=== PATIENT | female | born 1995 | race Caucasian/White ===

== ENCOUNTER 2018-02-20 18:43 | Day surgery (SDC) | payer OTHER, SELFPAY ==
[2018-02-20] VITALS (11 sets, daily range): BP systolic 98–156; BP diastolic 63–100; PULSE 78–110; RESP 10–22; TEMP 36.8–37.2; O2SAT 92–100; BMI 28.3
--- NOTE | 2018-02-20 | PATH_ITS ---
[facility] Accession Number: [id number] . 01 Material submitted: . RIGHT FALLOPIAN TUBE . 02 Diagnosis: Resected Right Fallopian Tube: Marked vascular congestion with associated recent subepithelial hemorrhage. Negative for atypia (see microscopic description). Negative for evidence of ectopic . MRV/02/23/2018 . 02 Electronically signed: . Froylan Bagley MD, Pathologist NPI- [id number] . 01 Gross description: . Received in formalin, labeled right fallopian tube, is a fimbriated fallopian tube (length-4.7 cm, diameter-up to 0.8 cm) with dark maroon smooth and shiny serosa and a lua unremarkable lumen. No nodules, masses or lesions are identified. [employer] serial sections are submitted in cassette A1 and the fimbria is bivalved and entirely submitted in cassette A2. ([id number]) /[facility] . 02 Microscopic: . Sections are of fallopian tube. There is marked congestion of the vasculature surrounding the fallopian tube and there is also marked recent subepithelial hemorrhage within the tube. These changes are quite consistent with those due to a recent torsion. There is no evidence of ectopic . . 02 Pathologist provided ICD-10: N83.511 . 02 CPT . 275605 Performed at: 01 [facility] [address], [place], [place] [id number] MD Alexander Beckman MD Phone: [phone] Performed at: 02 [facility] [address] [place], [place] [id number] MD Torey Wilde MD Phone: [phone]
[2018-02-20] MEDS: ONDANSETRON 4 MG/2 ML INJ IV (19:26)
[2018-02-20 19:27] LABS: Add Manual Diff / Slide Review NO; Basophils Percent Auto 0.4 % (0-2); Eosinophils Percent Auto 0.3 % (2-4); Hematocrit 42.2 % (36-46); Hemoglobin 14.2 g/dL (12.0-16.0); Lymphocytes Percent Auto 11.1 % (25-40); Mean Corpuscular HGB Conc 33.6 % (30-36); Mean Corpuscular Hemoglobin 30.6 PG (26-34); Mean Corpuscular Volume 90.9 fL (80-100); Monocytes Percent Auto 4.9 % (3-14); Neutrophils Absolute Auto 11900 /uL (3000-5900); Neutrophils Percent Auto 83.3 % (50-75); Platelet Count 250 X10^3/uL (150-400); Red Blood Cell Count 4.65 X10^6/uL (4.0-5.2); Red Cell Distribution Width 13.9 % (11.6-14.8); White Blood Cell Count 14.3 X10^3/uL (4.5-11.0)
[2018-02-20] MEDS: SODIUM CHLORIDE 0.9% 1,000 ML 150 ML IV (19:30)
--- NOTE | 2018-02-20 19:31 | DI.US.S_ITS ---
PROCEDURE: US PELVIC COMPLETE INDICATIONS: SEVERE RIGHT PELVIC PAIN TECHNIQUE: Real-time scanning was performed of the pelvic organs, with image documentation. Additional endovaginal scanning was necessary due to incomplete visualization of the adnexal and endometrial structures by transabdominal scanning. COMPARISON: None. FINDINGS: Transabdominal scanning: Limited scanning through the kidneys shows no hydronephrosis. No pathologic free abdominal or pelvic fluid. Endovaginal scanning: Uterus: Uterus is normal in size at 8.0 x 2.7 x 3.9 cm. The endometrium measures 7 mm in combined thickness. Ovaries: The right ovary is enlarged and heterogeneous in appearance measuring approximate 5.8 x 3.8 x 4.5 cm. There is overall minimal internal vascularity on color Doppler interrogation. A few scattered peripheral post Doppler waveforms suggests minimal arterial flow peripherally. There are a few scattered ovarian follicles. The left ovary measures approximately 3.2 x 2.2 x 3.2 cm. There is patent arterial flow demonstrated in the left ovary with a few scattered small follicles. IMPRESSION: 1. Enlarged heterogeneous right ovary with normal vascularity highly suspicious for ovarian torsion. Findings discussed with Dr. Messer on 02/20/18 at 8:30 PM. Dictated by: Alexander Montaño M.D. on 02/20/2018 at 20:27 Approved by: Alexander Montaño M.D. on 02/20/2018 at 20:32
--- NOTE | 2018-02-20 19:34 | ED.ABDPAIN ---
HPI - Abdominal Pain General Chief Complaint: Abdominal Pain Stated Complaint: ABD PAIN THROWING UP Time Seen by Provider: 02/20/18 19:31 Source: patient Mode of arrival: ambulatory Limitations: no limitations History of Present Illness HPI narrative: The patient is a 19-year-old female who presents with sudden onset right lower quadrant pain she has thrown up at least 3 times. It hurts whenever she moves. No history of ovarian cyst. She was at work earlier today and feeling well. No history of fever diarrhea. It is sharp stabbing nonradiating. No vaginal bleeding. complaint: abdominal pain Onset (ago): hour(s) Location: diffuse and RLQ Severity: severe Quality: stabbing and sharp Migration to: RLQ Related Data Home Medications Medication Instructions Recorded Confirmed No Known Home Medications 02/20/18 02/20/18 Allergies Allergy/AdvReac Type Severity Reaction Status Date / Time No Known Drug Allergies Allergy Verified 02/20/18 18:56 Review of Systems Review of Systems GENERAL: Denies chills, fatigue, malaise, fever, sweats, travel HEENT: Denies sinus pain, ear pain, sore throat, difficulty swallowing, neck pain RESPIRATORY: Denies dyspnea, cough, wheezing, hemoptysis, sputum. CARDIOVASCULAR: Denies chest pain, palpitations, orthopnea, edema GASTROINTESTINAL: see hPI : Denies dysuria, frequency, incontinence, hematuria, urinary retention, flank pain. MUSCULOSKELETAL: Denies weakness, joint pain, or bony pain SKIN: No rash, no erythema, no pruritus NEUROLOGIC: Denies weakness, dizziness, headache, numbness, change in speech, confusion PSYCHIATRIC: No concerning psychosocial issues. 12 point review of systems is negative except for those stated above and HPI [facility] Social History household members: other Smoking Status: Current every day smoker Exam Initial Vital Signs Initial Vital Signs: Vital Signs Temperature 98.2 F 02/20/18 18:52 Pulse Rate 82 02/20/18 18:52 Respiratory Rate 22 02/20/18 18:52 Blood Pressure 156/100 H 02/20/18 18:52 Pulse Oximetry 100 02/20/18 18:52 GENERAL: Crying young female crawled on left side appears in severe pain HEENT: Head atraumatic,EOMI, pupils reactive, face symmetric CARDIOVASCULAR: Regular rate and rhythm without murmurs, rubs or gallops. RESPIRATORY: Breath sounds equal bilaterally, no wheezes rales or rhonchi. ABDOMEN: Soft, significant localized tenderness in right lower quadrant with light touch with guarding. : No CVA tenderness EXTREMITIES: Normal range of motion, no clubbing or edema. Neurovascularly intact NEUROLOGICAL: Alert and oriented x4.Normal gait and speech. Cranial nerves II through XII grossly intact. SKIN: Warm, dry, no laceration, no petechiae, no rashes or lesions. Course Orders Ordered: ED Orders 02/20/18 19:17 Complete Blood Count AUTO DIFF Stat Comprehensive Metabolic Panel Stat Lipase Stat Test Serum,Qual Stat 02/20/18 19:31 US pelvic complete Stat 02/20/18 19:44 CT abdomen pelvis w con Stat Hydromorphone HCl (Dilaudid) 2 mg PO Q4HR PRN PRN Reason: Pain, Moderate (4-6) Last Admin: 02/21/18 00:25 Dose: 2 mg Sodium Chloride (Normal Saline 0.9%) 1,000 mls @ 100 mls/hr IV CONT VERONA Last Admin: 02/21/18 00:25 Dose: 100 mls/hr Ketorolac Tromethamine (Toradol) 30 mg IV Q6HR PRN PRN Reason: Pain, Moderate (4-6) Stop: 02/26/18 23:17 Ondansetron HCl (Zofran) 4 mg IV Q6HR PRN PRN Reason: Nausea And Vomiting Last Admin: 02/21/18 00:26 Dose: 4 mg Oxycodone/Acetaminophen (Percocet 5/325) 2 tab PO Q4HR PRN PRN Reason: Pain, Severe (7-10) Discontinued Medications Bupivacaine HCl/Epinephrine Bitart (Sensorcaine 0.5% W/ Epi (Pf)) 30 ml INJ NOW ONE Stop: 02/20/18 23:00 Last Admin: 02/20/18 23:01 Dose: 15 ml Fentanyl (Sublimaze) 25 mcg IV Q5MIN PRN PRN Reason: Pain, Mild (1-3) Hydromorphone HCl (Dilaudid) 0.5 mg IV Q5MIN PRN PRN Reason: Pain, Moderate (4-6) Sodium Chloride (Normal Saline 0.9%) 1,000 mls @ 150 mls/hr IV CONT VERONA Last Infusion: 02/21/18 00:00 Dose: 150 mls/hr Infusion: 02/21/18 00:00 Dose: 150 mls/hr Admin: 02/20/18 19:30 Dose: 150 mls/hr Lactated Ringer's (Lactated Ringers) 1,000 mls @ 42 mls/hr IV CONT VERONA Last Admin: 02/20/18 22:58 Dose: 42 mls/hr Infusion: 02/20/18 22:58 Dose: 42 mls/hr Admin: 02/20/18 22:00 Dose: 42 mls/hr Cefotetan Disodium/Dextrose (Cefotan) 2 gm in 50 mls @ 100 mls/hr IV NOW ONE Stop: 02/20/18 22:42 Last Infusion: 02/20/18 22:30 Dose: 0 mls/hr Admin: 02/20/18 22:13 Dose: 100 mls/hr Cefotetan Disodium/Dextrose (Cefotan) 2 gm in 50 mls @ 0 mls/hr IV NOW ONE Stop: 02/21/18 00:15 Last Admin: 02/21/18 03:29 Dose: Not Given Sodium Chloride (Normal Saline 0.9%) 1,000 mls @ 100 mls/hr IV CONT VERONA Last Admin: 02/21/18 03:01 Dose: Not Given Cefotetan Disodium/Dextrose (Cefotan) 2 gm in 50 mls @ 100 mls/hr IV NOW ONE Stop: 02/21/18 00:43 Last Admin: 02/21/18 03:29 Dose: Not Given Ketorolac Tromethamine (Toradol) 30 mg IV NOW ONE Stop: 02/20/18 19:33 Last Admin: 02/20/18 19:37 Dose: 30 mg Lorazepam (Ativan) 0.25 mg IV NOW PRN PRN Reason: Anxiety Meperidine HCl (Demerol) 25 mg IV Q5MIN PRN PRN Reason: Pain or shivering Metoclopramide HCl (Reglan) 10 mg IV NOW PRN PRN Reason: Nausea And Vomiting Morphine Sulfate (Morphine) 2 mg IV NOW ONE Stop: 02/20/18 19:54 Last Admin: 02/20/18 19:56 Dose: 2 mg Morphine Sulfate (Morphine) 2 mg IV NOW ONE Stop: 02/20/18 21:00 Last Admin: 02/20/18 21:04 Dose: 2 mg Morphine Sulfate (Morphine) 2 mg IV NOW ONE Stop: 02/20/18 21:41 Last Admin: 02/20/18 21:45 Dose: 2 mg Morphine Sulfate (Morphine) 2 mg IV NOW ONE Stop: 02/21/18 00:15 Last Admin: 02/21/18 03:00 Dose: Not Given Morphine Sulfate (Morphine) 2 mg IV NOW ONE Stop: 02/21/18 00:15 Last Admin: 02/21/18 03:01 Dose: Not Given Ondansetron HCl (Zofran) 4 mg IV NOW ONE Stop: 02/20/18 19:23 Last Admin: 02/20/18 19:26 Dose: 4 mg Ondansetron HCl (Zofran) 4 mg IV NOW ONE Stop: 02/20/18 19:33 Last Admin: 02/20/18 21:38 Dose: Not Given Consultations Consultation #1: Dr. 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 Time: 20:30 Consultation #2: Dr. Duval updated on patient's symptoms test results concern for ovarian torsion. He will be into the ED to evaluate patient. Time: 21:00 Vital Signs - 8 hr 02/20/18 21:28 02/20/18 21:58 02/20/18 22:05 Temperature 99.0 F Pulse Rate 78 92 H 106 H Respiratory Rate 16 18 16 Blood Pressure 129/92 H 141/95 H Blood Pressure [Right Arm] 134/91 H Pulse Oximetry 100 96 97 02/20/18 23:10 02/20/18 23:15 02/20/18 23:20 Temperature 98.9 F Pulse Rate 101 H 94 H 101 H Respiratory Rate 18 14 10 L Blood Pressure 110/72 103/70 98/63 Blood Pressure [Right Arm] Pulse Oximetry 94 96 97 02/20/18 23:25 02/20/18 23:30 02/20/18 23:40 Temperature Pulse Rate 105 H 110 H 100 H Respiratory Rate 12 12 12 Blood Pressure 114/79 117/85 135/82 Blood Pressure [Right Arm] Pulse Oximetry 93 92 02/20/18 23:47 Temperature 98.3 F Pulse Rate 95 H Respiratory Rate 11 L Blood Pressure 129/78 Blood Pressure [Right Arm] Pulse Oximetry 93 MDM - Abdominal Pain Lab Data Attestation: I reviewed the patient's lab results. Result diagrams: 02/20/18 19:17 02/20/18 19:17 Lab Results 02/20/18 02/20/18 02/20/18 Range/Units 19:17 19:17 19:17 WBC 14.3 H (4.5-11.0) X10^3/uL RBC 4.65 (4.0-5.2) X10^6/uL Hgb 14.2 (12.0-16.0) g/dL Hct 42.2 (36-46) % MCV 90.9 (80-100) fL MCH 30.6 (26-34) PG MCHC 33.6 (30-36) % RDW 13.9 (11.6-14.8) % Plt Count 250 (150-400) X10^3/uL Neut % (Auto) 83.3 H (50-75) % Lymph % (Auto) 11.1 L (25-40) % [place] % (Auto) 4.9 (3-14) % Eos % (Auto) 0.3 L (2-4) % Baso % (Auto) 0.4 (0-2) % Neut # (Auto) 35013 H (4337-1559) /uL Sodium 145 (137-145) mmol/L Potassium 3.9 (3.4-5.1) mmol/L Chloride 105 (98-107) mmol/L Carbon Dioxide 26 (22-32) mmol/L BUN 15 (7-17) mg/dL Creatinine 0.70 (0.52-1.04) mg/dL Estimated GFR > 60.0 (>60) mL/min BUN/Creatinine Ratio 21.4 (6-22) Glucose 98 (70-100) mg/dL Calcium 9.7 (8.4-10.2) mg/dL Total Bilirubin 0.4 (0.2-1.3) mg/dL AST 24 (14-36) IU/L ALT 30 (9-52) IU/L Alkaline Phosphatase 59 (38-126) U/L Total Protein 7.5 (6.3-8.2) g/dL Albumin 5.1 H (3.5-5.0) g/dL Globulin 2.4 (1.7-4.1) g/dL Albumin/Globulin Ratio 2.1 (1.0-2.8) Lipase 33 (23-300) U/L Serum , Qual Negative (Negative) Imaging Data CT scan - abdomen: Radiologist's impression: PROCEDURE: CT ABDOMEN PELVIS W CON INDICATIONS: RLQ pain TECHNIQUE: After the administration of intravenous contrast, 5 mm thick sections acquired from the diaphragms to the symphysis. 5 mm thick coronal and sagittal reformats were performed. For radiation dose reduction, the following was used: automated exposure control, adjustment of mA and/or kV according to patient size. COMPARISON: [facility], , US PELVIC COMPLETE, 02/20/2018, 19:45. FINDINGS: Image quality: Excellent. ABDOMEN: Lung bases: Lung bases are clear. Heart size is normal. Solid organs: No focal hepatic lesions identified. Gallbladder appears within normal limits without calcified gallstones. Biliary system is non-dilated. Pancreas enhances normally. Spleen is normal in size and enhancement. No adrenal nodules. Kidneys demonstrate no hydronephrosis. There are small bilateral renal cysts. Peritoneum and bowel: Stomach, small bowel, and colon loops are normal in caliber and wall thickness. The appendix is normal in appearance. There is a small amount of free fluid in the pelvis. No free air. Nodes and vessels: No retroperitoneal or mesenteric adenopathy. Aorta and inferior vena cava are normal in caliber. Miscellaneous: No ventral hernias. PELVIS: Genitourinary: Bladder wall thickness is normal. The right ovary is markedly enlarged, measuring up to approximately 6.3 x 3.8 cm in transverse dimension. There are scattered peripherally enhancing ovarian follicles. Left ovary is normal in size. Miscellaneous: No inguinal hernias or adenopathy. Bones: No suspicious bony lesions. No vertebral body compression fractures. IMPRESSION: 1. Enlarged right ovary highly suspicious for ovarian torsion and consistent with concurrent pelvic ultrasound. Findings were discussed with Dr. Messer on 02/20/18 at 8:30 PM. 2. No evidence of appendicitis. Dictated by: Alexander Montaño M.D. on 02/20/2018 at 20:33 Pelvic ultrasound: Radiologist's impression: PROCEDURE: US PELVIC COMPLETE INDICATIONS: SEVERE RIGHT PELVIC PAIN TECHNIQUE: Real-time scanning was performed of the pelvic organs, with image documentation. Additional endovaginal scanning was necessary due to incomplete visualization of the adnexal and endometrial structures by transabdominal scanning. COMPARISON: None. FINDINGS: Transabdominal scanning: Limited scanning through the kidneys shows no hydronephrosis. No pathologic free abdominal or pelvic fluid. Endovaginal scanning: Uterus: Uterus is normal in size at 8.0 x 2.7 x 3.9 cm. The endometrium measures 7 mm in combined thickness. Ovaries: The right ovary is enlarged and heterogeneous in appearance measuring approximate 5.8 x 3.8 x 4.5 cm. There is overall minimal internal vascularity on color Doppler interrogation. A few scattered peripheral post Doppler waveforms suggests minimal arterial flow peripherally. There are a few scattered ovarian follicles. The left ovary measures approximately 3.2 x 2.2 x 3.2 cm. There is patent arterial flow demonstrated in the left ovary with a few scattered small follicles. IMPRESSION: 1. Enlarged heterogeneous right ovary with normal vascularity highly suspicious for ovarian torsion. Findings discussed with Dr. Messer on 02/20/18 at 8:30 PM. Dictated by: Alexander Montaño M.D. on 02/20/2018 at 20:27 MDM Narrative Medical decision making narrative: Dr. Stubbs in the ED to evaluate patient. Patient going to OR for suspicion of ovarian torsion. Discharge Plan Departure Patient Disposition: Admitted as Observation Clinical Impression: Ovary, torsion Discharge Date/Time: 02/20/18 22:09 Interventions: ED Discharge Assessment Last Done: 02/20/18 22:09 Admit Date/Time: 02/20/18 21:21 Admit Provider: Felipe Stubbs
[2018-02-20] MEDS: KETOROLAC 60 MG/2 ML VIAL 30 MG IV (19:37)
[2018-02-20 19:39] LABS: Alanine Aminotransferase 30 IU/L (9-52); Albumin 5.1 g/dL (3.5-5.0); Albumin Globulin Ratio 2.1 (1.0-2.8); Alkaline Phosphatase 59 U/L (38-126); Aspartate Aminotransferase 24 IU/L (14-36); BUN Creatinine Ratio 21.4 (6-22); Bilirubin Total 0.4 mg/dL (0.2-1.3); Blood Urea Nitrogen 15 mg/dL (7-17); Calcium 9.7 mg/dL (8.4-10.2); Carbon Dioxide 26 mmol/L (22-32); Chloride 105 mmol/L (98-107); Estimated Glomerular Filt Rate > 60.0 mL/min (>60); Globulin 2.4 g/dL (1.7-4.1); Glucose 98 mg/dL (70-100); HEMOLYSIS < 15 (0-50); Lipase 33 U/L (23-300); Potassium 3.9 mmol/L (3.4-5.1); Sodium 145 mmol/L (137-145); Total Protein 7.5 g/dL (6.3-8.2)
--- NOTE | 2018-02-20 19:44 | DI.CT.S_ITS ---
PROCEDURE: CT ABDOMEN PELVIS W CON INDICATIONS: RLQ pain TECHNIQUE: After the administration of intravenous contrast, 5 mm thick sections acquired from the diaphragms to the symphysis. 5 mm thick coronal and sagittal reformats were performed. For radiation dose reduction, the following was used: automated exposure control, adjustment of mA and/or kV according to patient size. COMPARISON: [facility], , US PELVIC COMPLETE, 02/20/2018, 19:45. FINDINGS: Image quality: Excellent. ABDOMEN: Lung bases: Lung bases are clear. Heart size is normal. Solid organs: No focal hepatic lesions identified. Gallbladder appears within normal limits without calcified gallstones. Biliary system is non-dilated. Pancreas enhances normally. Spleen is normal in size and enhancement. No adrenal nodules. Kidneys demonstrate no hydronephrosis. There are small bilateral renal cysts. Peritoneum and bowel: Stomach, small bowel, and colon loops are normal in caliber and wall thickness. The appendix is normal in appearance. There is a small amount of free fluid in the pelvis. No free air. Nodes and vessels: No retroperitoneal or mesenteric adenopathy. Aorta and inferior vena cava are normal in caliber. Miscellaneous: No ventral hernias. PELVIS: Genitourinary: Bladder wall thickness is normal. The right ovary is markedly enlarged, measuring up to approximately 6.3 x 3.8 cm in transverse dimension. There are scattered peripherally enhancing ovarian follicles. Left ovary is normal in size. Miscellaneous: No inguinal hernias or adenopathy. Bones: No suspicious bony lesions. No vertebral body compression fractures. IMPRESSION: 1. Enlarged right ovary highly suspicious for ovarian torsion and consistent with concurrent pelvic ultrasound. Findings were discussed with Dr. Messer on 02/20/18 at 8:30 PM. 2. No evidence of appendicitis. Dictated by: Alexander Montaño M.D. on 02/20/2018 at 20:33 Approved by: Alexander Montaño M.D. on 02/20/2018 at 20:36
[2018-02-20] MEDS: MORPHINE 2 MG/ML INJ IV ×3 (19:56→21:45)
[2018-02-20 20:02] LABS: Pregnancy Test Serum,Qual Negative (Negative)
--- NOTE | 2018-02-20 21:38 | PM.GYNHP.1 ---
History of Present Illness Reason for admission: pelvic pain and other (questionable ovarian torsion) Narrative: ERIN JOSEPH is a 22 year old female [employer] who presents with 4 hr history of acute onset R lower quadrant pain accompanied by nausea Pelvic ultrasound and CT scan suggest ovarian torsion with limited blood flow [facility] Social History Smoking Status: Current every day smoker Meds Home Medications Medication Instructions Recorded Confirmed Type No Known Home Medications 02/20/18 02/20/18 History Allergies Allergy/AdvReac Type Severity Reaction Status Date / Time No Known Drug Allergies Allergy Verified 02/20/18 18:56 Review of Systems Review of Systems All systems reviewed & are unremarkable except as noted in HPI and below Exam Vital Signs (past 8 hours): - 02/20/18 18:52 02/20/18 21:28 Temperature 98.2 F 99.0 F Pulse Rate 82 78 Respiratory Rate 22 16 Blood Pressure 156/100 H Blood Pressure [Right Arm] 134/91 H Pulse Oximetry 100 100 Oxygen Delivery Method Room Air HENMT Head: normal to inspection Ears: hearing grossly normal bilaterally Nose: external nose normal Face and sinus: normal facial exam Eyes General: appearance normal, both eyes and all related structures Neck Neck: normal visual inspection Chest Breast inspection: normal inspection of the breasts Resp Auscultation: clear to auscultation bilaterally Cardio Rhythm: regular rhythm Heart Sounds: S1 normal and S2 normal GI Palpation: soft and no hepatosplenomegaly Percussion: normal to percussion Auscultation: normal bowel sounds Back/Spine/Pelvis Thoracic/Lumbar Spine: thoracic and lumbar spine normal to inspection Skin Hair: normal Neuro General: alert, tone normal, moves all extremities and normal light touch, pain and propioception Extrem General: normal to inspection Right upper extremity: normal to inspection Left upper extremity: normal to inspection Right lower extremity: normal to inspection Left lower extremity: normal to inspection Psych Appearance: grossly normal Objective Labs Result Diagrams: 02/20/18 19:17 02/20/18 19:17 Labs: Laboratory Results - last 24 hr 02/20/18 02/20/18 02/20/18 19:17 19:17 19:17 WBC 14.3 H RBC 4.65 Hgb 14.2 Hct 42.2 MCV 90.9 MCH 30.6 MCHC 33.6 RDW 13.9 Plt Count 250 Neut % (Auto) 83.3 H Lymph % (Auto) 11.1 L Pope % (Auto) 4.9 Eos % (Auto) 0.3 L Baso % (Auto) 0.4 Neut # (Auto) 01864 H Sodium 145 Potassium 3.9 Chloride 105 Carbon Dioxide 26 BUN 15 Creatinine 0.70 Estimated GFR > 60.0 BUN/Creatinine Ratio 21.4 Glucose 98 Calcium 9.7 Total Bilirubin 0.4 AST 24 ALT 30 Alkaline Phosphatase 59 Total Protein 7.5 Albumin 5.1 H Globulin 2.4 Albumin/Globulin Ratio 2.1 Lipase 33 Serum , Qual Negative
--- NOTE | 2018-02-20 21:41 | P.HPOB_ITS ---
History of Present Illness Reason for admission: pelvic pain and other (questionable ovarian torsion) Narrative: ERIN JOSEPH is a 22 year old female [employer] who presents with 4 hr history of acute onset R lower quadrant pain accompanied by nausea Pelvic ultrasound and CT scan suggest ovarian torsion with limited blood flow [facility] Social History Smoking Status: Current every day smoker Meds Home Medications Medication Instructions Recorded Confirmed Type No Known Home Medications 02/20/18 02/20/18 History Allergies Allergy/AdvReac Type Severity Reaction Status Date / Time No Known Drug Allergies Allergy Verified 02/20/18 18:56 Review of Systems Review of Systems All systems reviewed & are unremarkable except as noted in HPI and below Exam Vital Signs (past 8 hours): - 02/20/18 18:52 02/20/18 21:28 Temperature 98.2 F 99.0 F Pulse Rate 82 78 Respiratory Rate 22 16 Blood Pressure 156/100 H Blood Pressure [Right Arm] 134/91 H Pulse Oximetry 100 100 Oxygen Delivery Method Room Air HENMT Head: normal to inspection Ears: hearing grossly normal bilaterally Nose: external nose normal Face and sinus: normal facial exam Eyes General: appearance normal, both eyes and all related structures Neck Neck: normal visual inspection Chest Breast inspection: normal inspection of the breasts Resp Auscultation: clear to auscultation bilaterally Cardio Rhythm: regular rhythm Heart Sounds: S1 normal and S2 normal GI Palpation: soft and no hepatosplenomegaly Percussion: normal to percussion Auscultation: normal bowel sounds Back/Spine/Pelvis Thoracic/Lumbar Spine: thoracic and lumbar spine normal to inspection Skin Hair: normal Neuro General: alert, tone normal, moves all extremities and normal light touch, pain and propioception Extrem General: normal to inspection Right upper extremity: normal to inspection Left upper extremity: normal to inspection Right lower extremity: normal to inspection Left lower extremity: normal to inspection Psych Appearance: grossly normal Objective Labs Result Diagrams: 02/20/18 19:17 02/20/18 19:17 Labs: Laboratory Results - last 24 hr 02/20/18 02/20/18 02/20/18 19:17 19:17 19:17 WBC 14.3 H RBC 4.65 Hgb 14.2 Hct 42.2 MCV 90.9 MCH 30.6 MCHC 33.6 RDW 13.9 Plt Count 250 Neut % (Auto) 83.3 H Lymph % (Auto) 11.1 L [place] % (Auto) 4.9 Eos % (Auto) 0.3 L Baso % (Auto) 0.4 Neut # (Auto) 87123 H Sodium 145 Potassium 3.9 Chloride 105 Carbon Dioxide 26 BUN 15 Creatinine 0.70 Estimated GFR > 60.0 BUN/Creatinine Ratio 21.4 Glucose 98 Calcium 9.7 Total Bilirubin 0.4 AST 24 ALT 30 Alkaline Phosphatase 59 Total Protein 7.5 Albumin 5.1 H Globulin 2.4 Albumin/Globulin Ratio 2.1 Lipase 33 Serum , Qual Negative
[2018-02-20] MEDS: LACTATED RINGERS 1,000 ML 42 ML IV ×2 (22:00→22:58)
[2018-02-20] MEDS: CEFOTETAN 2 GM/50 ML PIGGYBACK IV (22:13)
--- NOTE | 2018-02-20 22:24 | SUR.HOLD ---
~1862 Brought to Surg dept after consent & ID verified. Patient in pain, Rx offered by anesthesia. Patient declined citing that she had just been given medication in the ED. Preparing patient for surgery, discussed fear about surgery. Assurance given. Patient became tearful and i asked which was worse - the fear or the pain. She cited pain,; 8\10 and that the Rx in the ED did nothing to relieve pain. Anesthesia informed. patient place on monitor and Rx given by anesthesia. patient became calm, stated that it wasn't gone, but was much better. Report given to director treasurer; pt. to the OR.
--- NOTE | 2018-02-20 22:48 | SUR.OPER ---
Lithotomy on padded OR bed, head on pillow, arms secured on padded arm boards at <90 degrees abduction. Legs secured in padded yellow fins stirrups.
[2018-02-20] MEDS: BUPIVACAINE 0.5% W/ EPI (PF) VIAL 30 ML INJ (23:01)
--- NOTE | 2018-02-20 23:20 | PM.GYNOP.1 ---
Operative Date/Time/Diagnoses Date of procedure: 02/20/18 Time of procedure: 23:20 Pre-op diagnosis: Torsion of ovary Post-op diagnosis: other (Torsion of fallopian tube) Procedure: Procedures Operation Date: 02/20/18 21:45 Actual Procedures Side Surgeon p Laparoscopy, Diagnostic, DRAINAGE ENGINEER, removal of right fallopian tube - torsion Felipe Stubbs MD Indications: Pelvic pain Diagnostic imaging evidence of decreased blood flow to ovary into Surgeon: Felipe Stubbs Anesthesia Type: General Operative Notes Findings: Patient appeared to have an infarcted swollen distal fallopian tube. The ovary appeared to be without evidence of infarction. Closure Type: primary Specimen(s): right tube Estimated blood loss (mL): 50 Blood products transfused: none Procedure in detail: The patient was placed supine upon the operating table and anesthetized. She was then examined under anesthesia. Under anesthesia she was felt to have a normal uterus anterior and no mass could be palpated. The patient was straight for repair the usual fashion. A speculum was set in place in the anterior lip of the cervix grasped with two tenaculum. The uterine cervix was dilated to a Hegar 8. The Zumi insufflation cannula was placed. The tenaculum was removed as well as the speculum. Clothes were changed and attention turned to the abdomen. Approximately 10 cc of 0.5% Marcaine 1 to [id number] epinephrine were injected in the about umbilicus. Sharp knife incision was made. The Veress needle was placed in approximately 3 L carbon dioxide gas were insufflated to a final resting pressure of 15 cm of water. The 5 mm trocar was then placed in the laparoscopic placed there through. Uterus was elevated in the patient had what appeared to be a torsion x2 of the fallopian tube around the ovarian pedicle with infarction at the distal 2/3 of the fallopian tube. The ovary appeared to be normal. The ovary on the left and the tube on the left appeared to be normal as well. The appendix was easily visualized and was normal. 2 5 mm ports were then placed in left and right laterally had at the level of the umbilicus. With gentle traction the tube was unwrapped and its torsion x2. And the distal and grasped. We waited approximately 5 min to see if any vascularity restored to the tube but it appeared to be completely infarcted. The ovary appeared to be normal. The infundibulopelvic ligament appeared to be normal as well. With the tube grasped is distal and the PlasmaKinetic forceps were introduced and the distal 2/3 of the tube were serially removed and transected and sent for pathologic exam. The ovary appeared normal at the end of the procedure. A 12 mm port was then placed into the umbilicus with the camera in the left hand port. The tube was grasped and pulled through the 12 mm port without difficulty. Pelvic contents were then visualized there is no bleeding points. All carbon dioxide gas was allowed to exit the abdomen and the laparoscopic trocars withdrawn. The umbilical incision was closed with a 0 Vicryl suture then with a running horizontal mattress three 0 Vicryl suture. The two 5 mm incisions were closed with horizontal mattress the 0 Vicryl suture. All incisions were further approximated with Steri-Strips. The Zumi insufflation cannula was removed. The patient was taken to the recovery room in satisfactory condition. Complications: none Post-operative Condition: stable Disposition: PACU Plan for aftercare: Patient will be transferred to the floor for observation
--- NOTE | 2018-02-20 23:45 | SUR.PHASEI ---
2320 arousing spontaneously, denies pain. skin warm and dry, resp even and regular 2330 Pain 3/10, declines pain med. States that it feels like when she worked out at they gym yesterday. SO brought to bedside. Alyssa Stubbs and Edin spoke with patient. pictures reviewed w/patient by Dr. Stubbs 1148 pain level unchanged, tolerating sips of water without nausea. Scant drainage on all steri-strips. no vag flow.
[2018-02-21] VITALS: BP 120/69; PULSE 88; RESP 16; TEMP 37.2; O2SAT 97
--- NOTE | 2018-02-21 00:03 | SUR.PHASEI ---
2353 to acute care, began complaining of abdominal pain w/grimace and tears after leaving the recovery room. Report given, Bed down and locked, call light within reach. Clothes brought to room by SO.
[2018-02-21] MEDS: HYDROMORPHONE 2 MG TABLET PO ×3 (00:25→09:37)
[2018-02-21] MEDS: SODIUM CHLORIDE 0.9% 1,000 ML 100 ML IV (00:25)
[2018-02-21] MEDS: ONDANSETRON 4 MG/2 ML INJ IV (00:26)
[2018-02-21 00:30] VITALS: BP 125/75; PULSE 92; RESP 16; TEMP 36.9; O2SAT 97
[2018-02-21 00:40] VITALS: BMI 28.3
[2018-02-21 01:00] VITALS: BP 115/75; PULSE 82; RESP 16; TEMP 37.2; O2SAT 98
[2018-02-21 02:00] VITALS: BP 107/66; PULSE 64; RESP 16; TEMP 37.1; O2SAT 98
[2018-02-21 03:00] VITALS: BP 134/98; PULSE 87; RESP 16; TEMP 36.7; O2SAT 98
[2018-02-21] MEDS: KETOROLAC 30 MG/ML VIAL IV (03:53)
--- NOTE | 2018-02-21 08:03 | PM.DS.1 ---
History of Present Illness Date Patient Seen: 02/21/18 Time Patient Seen: 08:04 Chief complaint: RIGHT LOWER QUADRANT PAIN Narrative: THE PATIENT IS A 22-YEAR-OLD SINGLE WHITE FEMALE WHO PRESENTED WITH ACUTE ONSET OF RIGHT LOWER QUADRANT PAIN. PATIENT PRESENTED EMERGENCY ROOM AND WAS WORKED UP THERAPY. SHE WAS AFEBRILE. PELVIC ULTRASOUND AND CT SCAN SHOWED A PRESUMED ENLARGED OVARY ON THE RIGHT-HAND SIDE WITH DIMINISHED BLOOD FLOW. THE PRESUMPTIVE DIAGNOSIS OF OVARIAN TORSION WAS MADE. PATIENT WAS TAKEN TO SURGERY AND UNDERWENT DIAGNOSTIC LAPAROSCOPY. THE RIGHT OVARY WAS NORMAL BUT THE LEFT TUBE WAS SWOLLEN ENLARGED AND INFARCTED. THIS WAS MOST LIKELY DUE TO A HYDADID OF mORGAGNI WHICH CAUSE TORSION BY WRAPPING ITSELF AROUND THE OVARIAN LIGAMENT. A SALPINGECTOMY WAS PERFORMED. POSTOPERATIVELY THE PATIENT DID WELL SHE REMAINED AFEBRILE WITH STABLE VITAL SIGNS AND WAS PROGRESSIVELY ELEVATED AND AMBULATED. SHE WAS DISCHARGED HOME FOR FOLLOW-UP IN TWO WEEKS. Discharge Providers Date of admission: 02/20/18 21:21 Discharge provider: Felipe Stubbs MD Discharge Date: 02/21/18 Summary Discharge Diagnosis: INFARCTED RIGHT FALLOPIAN TUBE TORSION OF RIGHT FALLOPIAN TUBE STATUS POST SALPINGECTOMY Hospital Course: PATIENT IS A 22-YEAR-OLD 0 PARA 0 SINGLE WHITE FEMALE PRESENTED WITH RIGHT LOWER QUADRANT PAIN. ULTRASOUND AND CT SCANS SUGGESTED OVARIAN TORSION. THE PATIENT WAS TAKEN TO SURGERY AND UNDERWENT DIAGNOSTIC LAPAROSCOPY AND WAS FOUND TO HAVE AN INFARCTED RIGHT FALLOPIAN TUBE. A SALPINGECTOMY WAS PERFORMED. POSTOPERATIVELY THE PATIENT DID WELL. SHE REMAINED AFEBRILE WITH STABLE VITAL SIGNS AND WAS PROGRESSIVELY ELEMENT AND AMBULATED. SHE WAS DISCHARGED HOME FOR FOLLOW-UP IN TWO WEEKS Status at Discharge Functional status at discharge: independent ambulation Time Spent with Patient Less than 30 minutes Exam Vital Signs (past 8 hours): - 02/21/18 00:30 02/21/18 01:00 02/21/18 02:00 Temperature 98.5 F 99.0 F 98.8 F Pulse Rate 92 H 82 64 Respiratory Rate 16 16 16 Blood Pressure 125/75 115/75 107/66 Pulse Oximetry 97 98 98 02/21/18 03:00 Temperature 98.1 F Pulse Rate 87 Respiratory Rate 16 Blood Pressure 134/98 H Pulse Oximetry 98 Oxygen Delivery Method Room Air Oxygen Flow Rate 2 Narrative Exam Narrative: PATIENT'S ABDOMEN WAS SOFT WITH TELFA DRESSINGS ON HER INCISION SITES. THE ABDOMEN WAS NONDISTENDED WITH GOOD BOWEL SOUNDS Objective Labs Result Diagrams: 02/20/18 19:17 02/20/18 19:17 Labs: Laboratory Results - last 24 hr 02/20/18 02/20/18 02/20/18 19:17 19:17 19:17 WBC 14.3 H RBC 4.65 Hgb 14.2 Hct 42.2 MCV 90.9 MCH 30.6 MCHC 33.6 RDW 13.9 Plt Count 250 Neut % (Auto) 83.3 H Lymph % (Auto) 11.1 L [place] % (Auto) 4.9 Eos % (Auto) 0.3 L Baso % (Auto) 0.4 Neut # (Auto) 86616 H Sodium 145 Potassium 3.9 Chloride 105 Carbon Dioxide 26 BUN 15 Creatinine 0.70 Estimated GFR > 60.0 BUN/Creatinine Ratio 21.4 Glucose 98 Calcium 9.7 Total Bilirubin 0.4 AST 24 ALT 30 Alkaline Phosphatase 59 Total Protein 7.5 Albumin 5.1 H Globulin 2.4 Albumin/Globulin Ratio 2.1 Lipase 33 Serum , Qual Negative Discharge Plan Discharge Plan Patient Disposition: Home Discharge comment: FOLLOW-UP WITH DR. PARNELL IN TWO WEEKS Discharge Med Rec/Prescriptions Prescriptions: New hydromorphone 2 mg Tablet 2 mg PO Q4HR PRN (Reason: Pain, Moderate (4-6)) Qty: 30 RF: 0 ibuprofen 600 mg tablet 600 mg PO TID-QID PRN (Reason: pain) Qty: 20 RF: 0 No Action No Known Home Medications RF: 0 Follow up/Referrals: Felipe Stubbs MD [Physician] - 2 Weeks Provider Discharge Instructions Diet: Diet as Tolerated Activity: up ad ewa may shower Skin/Wound/Dressing Care Report to your healthcare provider any signs of infection, such as:: chills, fever, increased pain and unusual drainage Other wound treatment: remove telfa dressings 2-3 days leave steristrips on until 2 week visit Discharge Data Attending Provider: Felipe Stubbs Admit Date/Time: 02/20/18 21:21 Quality VTE Deep Vein Thrombosis/Pulmonary Embolism Present on Admission: No
[2018-02-21 09:12] VITALS: BP 113/72; PULSE 74; RESP 20; TEMP 36.8; O2SAT 95
== END 2018-02-21 11:06 | disposition home or self-care (01) ==
LOC: ED 20:49 → AC 21:22 → OR 02-21 14:50
PROVIDERS: Emergency Provider Emergency Medicine; PCP General Practice
PROC: (CPT 49320; principal; 2018-02-20 21:45)
DX: N83.521 Torsion of right fallopian tube (principal); R10.9 Unspecified abdominal pain; R11.2 Nausea with vomiting, unspecified; F17.210 Nicotine dependence, cigarettes, uncomplicated
CPT/HCPCS: 58661; 36591; 74177; 76830; 76856; 80053; 83690; 84703; 85025; 88305; 96361; 96374; 96375; 96376; 99283; 99285; G0378; J0330; J1100; J1885; J2250; J2270; J2405; J2704; J3010; Q9967

== ENCOUNTER 2019-03-03 03:15 | Emergency (ER) | payer OTHER, SELFPAY ==
[2019-03-03 03:22] VITALS: BP 151/104; PULSE 90; RESP 20; TEMP 36.6; O2SAT 97
[2019-03-03 03:53] LABS: Appearance Urine UA CLEAR; Bacteria Urine None Seen; Bilirubin Urine UA NEGATIVE (NEGATIVE); Color Urine UA YELLOW; Glucose Urine UA NEGATIVE (Negative); Ketones Urine UA 2+ (NEGATIVE); Leukocyte Esterase Urine UA NEGATIVE (NEGATIVE); Nitrite Urine UA NEGATIVE (Negative); Occult Blood Urine UA NEGATIVE (Negative); Protein Urine UA NEGATIVE (Negative); RBC Urine None Seen (0-5/HPF); Specific Gravity Urine UA <=1.005 (1.000-1.035); Urobilinogen Urine UA 0.2 E.U./dL (0.2); WBC Urine None Seen (0-5/HPF)
[2019-03-03 04:05] LABS: Culture Indicated Urine Cult Not Indicated; Urine Comments Microscopic Normal
[2019-03-03] MEDS: KETOROLAC 60 MG/2 ML VIAL IM (04:05)
[2019-03-03 04:37] VITALS: BP 125/89; PULSE 88; RESP 18; O2SAT 98
--- NOTE | 2019-03-03 05:30 | ED.ABDPAIN ---
HPI - Abdominal Pain General Chief Complaint: Abdominal Pain Stated Complaint: abdominal pain, vomiting Time Seen by Provider: 03/03/19 03:15 Source: patient Mode of arrival: Ambulatory Limitations: no limitations History of Present Illness HPI narrative: 24-year-old female nonsmoker presents with her significant other for evaluation of what has become chronic right lower quadrant pain. She was seen and evaluated here about 1 year ago and had surgery for torsed fallopian tube. Admittedly, she has had problems with right lower quadrant pain nearly every menstrual cycle since that surgery. Her symptoms tend to improve after menses and then returned again during her menstrual cycle. She denies any fever or chills and has been nauseated but denies any vomiting. She denies any dysuria, frequency or urgency. She has had no significant or abnormal vaginal bleeding. She was seen and evaluated earlier tonight at another facility and had CAT scan and ultrasound as well as lab work performed. She was unclear on the discharge diagnosis and started having some increasing pain on her way home so she came here for follow-up because this is where her original surgery was. Her pain is worse with motion and improves with rest. MD complaint: abdominal pain Onset (ago): day(s) Pain Consistency: constant Location: RLQ Severity: mild Quality: cramping and aching Radiation: none Relieving factors: rest Exacerbating factors: movement Associated symptoms: nausea Related Data Date of Last Menstrual Period: 03/03/19 Patient : No Previous Rx's Medication Instructions Recorded hydromorphone 2 mg PO Q4HR PRN #30 tab 02/21/18 ibuprofen 600 mg PO TID-QID PRN #20 tab 02/21/18 ketorolac 10 mg PO Q6H PRN #14 tab 03/03/19 Allergies Allergy/AdvReac Type Severity Reaction Status Date / Time No Known Drug Allergies Allergy Verified 03/09/18 10:00 Review of Systems Constitutional Constitutional: Denies chills, Denies fatigue, Denies fever(s), Denies frequent falls, Denies lethargy and Denies weakness Eyes Eyes: Denies change in vision, Denies eye discharge, Denies irritation and Denies loss of vision ENT Ears, Nose, Mouth, and Throat: Denies change in voice, Denies dizziness, Denies neck pain, Denies sore throat and Denies throat swelling Cardiovascular Cardiovascular: Denies chest pain, Denies irregular heart rhythm, Denies lightheadedness, Denies palpitations, Denies dyspnea, Denies dyspnea on exertion and Denies orthopnea Respiratory Respiratory: Denies cough, Denies dyspnea, Denies dyspnea on exertion and Denies wheezing Gastrointestinal Gastrointestinal: Reports abdominal pain, Denies change in bowel habits, Denies diarrhea, Denies nausea and Denies vomiting Genitourinary Genitourinary: Denies hematuria, Denies flank pain, Denies urinary incontinence and Denies urinary urgency Musculoskeletal Musculoskeletal: Denies back pain, Denies muscle weakness, Denies neck pain, Denies numbness and Denies tingling Integumentary/Breasts Skin/Breast: Denies pruritus, Denies erythema, Denies rash and Denies wounds Neurologic Neurologic: Denies behavioral changes, Denies confusion, Denies dizziness, Denies frequent falls, Denies loss of vision, Denies numbness, Denies tingling and Denies weakness Psychiatric Psychiatric: Denies anxiety, Denies behavioral changes, Denies confusion, Denies depression, Denies homicidal ideation and Denies suicidal ideation Endocrine Endocrine: Denies fatigue, Denies flushing and Denies palpitations Hematologic/Lymphatic Hematologic/Lymphatic: Denies easy bruising Allergic/Immunologic Allergic/Immunologic: Denies urticaria, Denies throat swelling and Denies wheezing Patient History Social History household members: other Smoking Status: Current every day smoker alcohol intake frequency: a few times a week Substance Use Type: does not use Exam Narrative Exam Narrative: GENERAL: [24] year old patient appears stated age. Well-nourished, well-developed patient, in mild distress. Tearful, holding emesis bag HEAD: Atraumatic. Normocephalic. EYES: Pupils equal round and reactive. Extraocular motions intact. No scleral icterus. No injection or drainage. ENT: Nose without bleeding, purulent drainage. Throat without erythema, tonsillar hypertrophy or exudate. Airway patent. NECK: Trachea midline. Non tender CARDIOVASCULAR: Regular rate and rhythm without murmurs, gallops, or rubs. RESPIRATORY: Clear to auscultation. Breath sounds equal bilaterally. No wheezes, rales, or rhonchi. GASTROINTESTINAL: Abdomen soft, tender in the right lower quadrant, nondistended. EXTREMITIES: No edema or joint tenderness. BACK: Nontender without deformity or crepitance. No flank tenderness. NEURO: AOx3. SKIN: No rash or erythema of visible areas Initial Vital Signs Initial Vital Signs: Vital Signs Temperature 98 F 03/03/19 03:22 Pulse Rate 90 03/03/19 03:22 Respiratory Rate 20 03/03/19 03:22 Blood Pressure 151/104 H 03/03/19 03:22 Pulse Oximetry 97 03/03/19 03:22 Course Course Course Narrative: Nearly immediately upon the patient arrival we called the outside facility to obtain medical records. The provider who had cared for the patient was kind enough to jump on the phone and described his findings and concerns as well as consultations. CT scan and ultrasound both show ovarian cyst with good flow, normal appendix and no significant findings. Labs were unremarkable. Patient had been given multiple doses of morphine and Dilaudid as well as a prepack for hydrocodone. Orders Ordered: ED Orders 03/03/19 03:50 Urinalysis and Microscopic Stat Discontinued Medications Ketorolac Tromethamine (Toradol) 60 mg IM NOW ONE Stop: 03/03/19 03:57 Last Admin: 03/03/19 04:05 Dose: 60 mg Documented by: ONEIL Reevaluation(s) Reevaluation #1: Patient continues to be relatively pain-free Vital Signs Vital signs: Vital Signs - 8 hr 03/03/19 03:22 03/03/19 04:37 Temperature 98 F Pulse Rate 90 88 Respiratory Rate 20 18 Blood Pressure 151/104 H 125/89 Pulse Oximetry 97 98 MDM - Abdominal Pain Lab Data Labs: Lab Results 03/03/19 Range/Units 03:50 Urine Color Yellow Urine Appearance Clear Urine pH 7.0 (4.5-8.0) Ur Specific [place] <=1.005 (1.000-1.035) Urine Protein Negative (Negative) Urine Glucose (UA) Negative (Negative) g/dL Urine Ketones 2+ H (NEGATIVE) Urine Occult Blood Negative (Negative) Urine Nitrate Negative (Negative) Urine Bilirubin Negative (NEGATIVE) Urine Urobilinogen 0.2 (0.2) E.U./dL Ur Leukocyte Esterase Negative (NEGATIVE) Urine RBC None seen (0-5/HPF) Urine WBC None seen (0-5/HPF) Urine Bacteria None seen (None) Ur Culture Indicated? Cult not indicated Micro UA Comment Microscopic normal MDM Narrative Medical decision making narrative: 24-year-old female with monthly right lower quadrant pain which comes with her menses. Earlier tonight she had unremarkable CT scan and ultrasound as well as lab work. Her physical exam is very reassuring. Recommended pelvic exam but she refused at this point time stating she would rather do it with her primary care provider despite discussion of risks and benefits. She has had return precautions given and had questions answered to her apparent satisfaction Discharge Plan Departure Patient Disposition: Home Clinical Impression: Acute right lower quadrant pain Discharge Date/Time: 03/03/19 04:41 Activity Restrictions/Additional Instructions: *You have been diagnosed with [ Acute on Chronic Right lower pelvic pain, likely ovarian ] *What to do: *Take medications as directed *Follow up with your primary care provider in 2-3 days, call for an appointment. Let them know you were seen in the Emergency Department and that we ask that you be seen in follow up *Return to ER if you should have any new, worsening or concerning symptoms Prescriptions: New ketorolac 10 mg tablet 10 mg PO Q6H PRN (Reason: pain) Qty: 14 RF: 0 No Action hydromorphone 2 mg Tablet 2 mg PO Q4HR PRN (Reason: Pain, Moderate (4-6)) Qty: 30 RF: 0 ibuprofen 600 mg tablet 600 mg PO TID-QID PRN (Reason: pain) Qty: 20 RF: 0 Referrals: Christelle Shearer MD [Primary Care Provider] -
== END 2019-03-03 04:41 | disposition home or self-care (01) ==
PROVIDERS: Emergency Provider Emergency Medicine; PCP General Practice
DX: R10.31 Right lower quadrant pain (principal)
CPT/HCPCS: 81001; 96372; 99282; 99283; J1885

== ENCOUNTER 2019-03-06 11:43 | Observation (INO) | payer OTHER, SELFPAY ==
[2019-03-06] VITALS (15 sets, daily range): BP systolic 103–127; BP diastolic 58–83; PULSE 82–135; RESP 10–29; TEMP 36.3–37.5; O2SAT 90–98; BMI 32.5
--- NOTE | 2019-03-06 | PATH_ITS ---
[facility] Accession Number: [id number] . 01 Material submitted: . PART A: ovary - RIGHT OVARY AND PARTIAL RIGHT FALLOPIAN TUBE PART B: appendix - APPENDIX . 01 Clinical history: . VOMITING PAIN HEADACHES DIZZY . 02 Diagnosis: A. Right Ovary and Partial Right Fallopian Tube, Right Oophorectomy and Partial Salpingectomy (Weight 64 grams): Diffusely hemorrhagic ovary, consistent with clinical history of torsion. Segment of fallopian tube with focally hemorrhagic paratubal connective tissue; negative for cytologic atypia or malignancy. . B. Appendix, Laparoscopic Appendectomy: Acute appendicitis and serositis. Fecalith present (0.9 cm). [facility] 03/09/2019 1320 Local . 02 Comment: . . 02 Electronically signed: . Brenda Mitchell MD, Pathologist NPI- [id number] . 01 Gross description: . A. Received in a formalin-filled container, additionally labeled right ovary and partial right fallopian tube, and consists of multiple unoriented soft tissue fragments grossly consistent with a fragmented ovary, 11.5 x 11.3 x 3.2 cm in aggregate, which has a combined weight of 64.0 grams. The presumed ovarian serosa is hemorrhagic, lua, smooth with numerous transmural defects. The largest intact portion of ovarian tissue is up to 7.6 cm. Mixed with the ovarian fragments is a moderate amount of red hemorrhagic blood clot. The presumed ovarian serosa is inked blue. Sectioning of the ovarian fragments reveals diffusely hemorrhagic cut surfaces with an extensive amount of blood clot. The usual ovarian architecture is not grossly identified. There are no parts, masses or lesions grossly identified. Also, separately received in the same container is a 2.0 x 0.6 cm, lua-red, focally hemorrhagic, smooth intact segment of possible fallopian tube, which has focally hemorrhagic, otherwise grossly unremarkable cut surfaces with a pinpoint lumen. Pump Erector Helper sections are submitted as follows: A1 - fallopian tube, quadrisected, entirely submitted; A2-A5 - ovary. B. Received in a formalin-filled container, labeled appendix, and consists of a 7.6 x 1.1 x 0.9 cm, lua-red, smooth intact appendix, with a moderate amount of adherent mesoappendix. The mesoappendix and appendiceal margin are inked orange. There is a minimal amount of adherent lua exudate. Sectioning reveals a single lua-brown fecalith up to 0.9 cm. The mucosa is pink-lua, focally hemorrhagic, otherwise grossly unremarkable, and the lumen is probe patent 0.2 cm up to 0.5 cm. Pump Erector Helper sections are submitted as follows: B1 - appendix, including orang-inked appendiceal margin; B2 - distal tip of appendix, bisected, entirely submitted. (MS:[id number]) /MRV 03/08/2019 [facility] Local . 02 Pathologist provided ICD-10: K35.80, N83.511 . 02 CPT . 957484, [id number] Performed at: 01 [facility] [address] [facility], [place], [place] [id number] MD Alexander Beckman MD Phone: [phone] Performed at: 02 [facility] [address] [place], [place] [id number] MD Maria G Gaytan MD Phone: [phone]
--- NOTE | 2019-03-06 12:25 | ED.ABDPAIN ---
HPI - Abdominal Pain <Paola Tinoco PA-C - Last Filed: 03/06/19 20:51> General Chief Complaint: Abdominal Pain Stated Complaint: VOMITING PAIN HEADACHES DIZZY Time Seen by Provider: 03/06/19 12:10 Source: patient Mode of arrival: Ambulatory Limitations: no limitations History of Present Illness HPI narrative: This 24-year-old female is sent to the ED by [facility] solar pv installer for further evaluation of ongoing right side and pelvic pain. She states that pain initially started last Tuesday at 5:00 a.m.. It seemed to be focused in the right upper quadrant but radiated ?to my ovary?. She states that pain was severe, persisted the next day and described as stabbing. She states that Tuesday, the pain began to be more generalized to the right side and pain was so severe she was having vomiting and dizziness, unable to keep down fluids or medications (she states this is atypical reaction for her when she has severe pain). She states pain had some similar features to when she had tubal torsion last year. She states that she was concerned about her right ovary, which was left in, seen at another local ED and workup was done. She also ended up being seen here on Tuesday as pain had persisted and she states that she was not sure of the results from the other hospital. She states that she was told the ovary was enlarged. She states that after medications pain was somewhat better, but still persistent. She states that she is more comfortable in bed and basically has been staying in bed, but pain is worse up and moving around, driving here, etc. She states that pain now moves across her abdomen, but is still focused on the right side. She has been taking Toradol during the day and hydrocodone/acetaminophen at night with some relief. She has had some intermittent dysuria, but none today. She states that when this started, she was having loose stools and diarrhea, but has not had a bowel movement for the last 2 days. Has not had much in the way of food or fluids. She was referred to credit risk officer [place] states she had severe pain in the adnexal area. Physician from there called here and was concerned about rebound tenderness so she was sent here for further evaluation. She has been warm at times, unknown whether any fever at home. She denies any chest pain or dyspnea, states she has minimal cough today but has not had any respiratory symptoms or known exposures. Denies other new complaints on systems review. She states she has had some chronic right-sided pain since her fallopian tube removal. Denies possibility of . LMP 03/01 Related Data Previous Rx's Medication Instructions Recorded hydromorphone 2 mg PO Q4HR PRN #30 tab 02/21/18 ibuprofen 600 mg PO TID-QID PRN #20 tab 02/21/18 oxycodone 5 mg PO Q6H PRN #10 tab 03/06/19 Allergies Allergy/AdvReac Type Severity Reaction Status Date / Time No Known Drug Allergies Allergy Verified 03/06/19 15:11 Review of Systems <Paola Tinoco PA-C - Last Filed: 03/06/19 20:51> Review of Systems ROS Unobtainable: All systems reviewed & are unremarkable except as noted in HPI and below Patient History <Paola Tinoco PA-C - Last Filed: 03/06/19 20:51> Medical History (Updated 03/06/19 @ 20:49 by Paola Tinoco PA-C) No chronic problems (Acute) Surgical History Torsion, fallopian tube (Resolved) Social History household members: significant other and other Smoking Status: Former smoker alcohol intake frequency: a few times a week Substance Use Type: does not use Exam <Paola Tinoco PA-C - Last Filed: 03/06/19 20:51> Narrative Exam Narrative: GENERAL APPEARANCE: Patient appears mildly uncomfortable but in no distress. HEENT: PERRL, EOMI, no scleral icterus, normal oropharynx NECK: Supple, no masses LUNGS: Clear to auscultation bilaterally. HEART: Rate and rhythm regular, normal S1 and S2, no S3 or S4. ABDOMEN: Soft, nondistended, bowel sounds present x 4 quadrants, no masses palpable, no hepatosplenomegaly. exquisite right upper quadrant tenderness with guarding and positive Thomas sign. moderate right mid to lower quadrant tenderness with guarding over the right lower quadrant. No rebound. referred tenderness with left side palpation. minimal right CVAT EXTREMITIES: No edema, no cyanosis DERMATOLOGIC: No jaundice or exanthem NEUROLOGIC: Alert and oriented with normal speech and coordination Initial Vital Signs Initial Vital Signs: Vital Signs Temperature 99.4 F 03/06/19 12:14 Pulse Rate 100 H 03/06/19 12:14 Respiratory Rate 13 03/06/19 12:14 Blood Pressure 126/83 03/06/19 12:14 Pulse Oximetry 98 03/06/19 12:14 <Braden Borges DO - Last Filed: 03/07/19 07:59> Initial Vital Signs Initial Vital Signs: Vital Signs Temperature 99.4 F 03/06/19 12:14 Pulse Rate 100 H 03/06/19 12:14 Respiratory Rate 13 03/06/19 12:14 Blood Pressure 126/83 03/06/19 12:14 Pulse Oximetry 98 03/06/19 12:14 Course <Paola Tinoco PA-C - Last Filed: 03/06/19 20:51> Course Additional Information: Notes from workup 2 days ago at outside facility were reviewed including lab work, CT scan, ultrasound. CT did not show acute appendicitis or other abdominal process. She did have enlarged right ovary that today shows concern for torsion. Patient reported that this pain felt similar to her previous pain from adnexal torsion prior to removal. She does not have fever, other new concerning findings on lab work so CT was not repeated in the ED. Findings reviewed with Dr. sorenson, on-call for gynecology, who has seen patient in the ED and will take to surgery for oophorectomy Orders Ordered: Discontinued Medications Benzocaine (Cepacol Lozenge) 1 each PO PRN PRN PRN Reason: Sore Throat Last Admin: 03/06/19 18:05 Dose: 1 each Documented by: SHERRY Bupivacaine HCl/Epinephrine Bitart (Sensorcaine 0.5% W/ Epi (Pf)) 30 ml INJ NOW ONE Stop: 03/06/19 16:41 Last Admin: 03/06/19 16:40 Dose: 30 ml Documented by: BENJA Fentanyl (Sublimaze) 0 mcg IV Q5M PRN PRN Reason: Pain, Moderate (4-6) Hydromorphone HCl (Dilaudid) 0 mg IV Q5M PRN PRN Reason: Pain, Moderate (4-6) Last Admin: 03/06/19 17:57 Dose: 0.5 mg Documented by: Admin: 03/06/19 17:30 Dose: 0.5 mg Documented by: SHERRY Hydroxyzine HCl (Vistaril) 25 mg IM NOW PRN PRN Reason: Pain, Mild (1-3) Sodium Chloride (Normal Saline 0.9%) 1,000 mls @ 150 mls/hr IV CONT VERONA Last Admin: 03/06/19 13:22 Dose: Not Given Documented by: JIMBOARRINGTO Sodium Chloride (Normal Saline 0.9%) 1,000 mls @ 1,000 mls/hr IV BOLUS ONE Stop: 03/06/19 13:56 Last Infusion: 03/06/19 14:54 Dose: 0 mls/hr Documented by: Admin: 03/06/19 13:44 Dose: 1,000 mls/hr Documented by: JIMBOARRINGTO Lactated Ringer's (Lactated Ringers) 1,000 mls @ 42 mls/hr IV NOW ONE Stop: 03/07/19 15:11 Last Infusion: 03/06/19 20:52 Dose: 0 mls/hr Documented by: Admin: 03/06/19 17:32 Dose: 42 mls/hr Documented by: Infusion: 03/06/19 17:00 Dose: 42 mls/hr Documented by: Admin: 03/06/19 15:24 Dose: 42 mls/hr Documented by: SALVADOR Acetaminophen (Ofirmev) 1,000 mg in 100 mls @ 400 mls/hr IV NOW ONE Stop: 03/06/19 16:17 Last Infusion: 03/06/19 16:15 Dose: 0 mls/hr Documented by: Admin: 03/06/19 16:00 Dose: 400 mls/hr Documented by: ZACK Lactated Ringer's (Lactated Ringers) 1,000 mls @ 42 mls/hr IV CONT VERONA Cefotetan Disodium/Dextrose (Cefotan) 2 gm in 50 mls @ 100 mls/hr IV NOW ONE Stop: 03/06/19 16:50 Last Infusion: 03/06/19 16:30 Dose: 0 mls/hr Documented by: Admin: 03/06/19 16:25 Dose: 100 mls/hr Documented by: ZACK Lactated Ringer's (Lactated Ringers) 1,000 mls @ 100 mls/hr IV CONT VERONA Ketorolac Tromethamine (Toradol) 30 mg IV NOW ONE Stop: 03/06/19 12:58 Last Admin: 03/06/19 13:44 Dose: 30 mg Documented by: BRITTANY Lorazepam (Ativan) 0.25 mg IV NOW PRN PRN Reason: Anxiety Last Admin: 03/06/19 17:28 Dose: 0.25 mg Documented by: SHERRY Meperidine HCl (Demerol) 25 mg IV NOW PRN PRN Reason: Moderate pain or shivering Metoclopramide HCl (Reglan) 10 mg IV NOW PRN PRN Reason: Nausea And Vomiting Ondansetron HCl (Zofran) 4 mg IV NOW ONE Stop: 03/06/19 12:58 Last Admin: 03/06/19 13:44 Dose: 4 mg Documented by: BRITTANY Ondansetron HCl (Zofran) 4 mg IV NOW PRN PRN Reason: Nausea And Vomiting Last Admin: 03/06/19 17:56 Dose: 4 mg Documented by: SHERRY Oxycodone HCl (Percolone) 5 mg PO NOW PRN PRN Reason: Mild or moderate pain Last Admin: 03/06/19 18:08 Dose: 5 mg Documented by: SHERRY Pantoprazole Sodium (Protonix) 40 mg IV NOW ONE Stop: 03/06/19 12:58 Last Admin: 03/06/19 13:44 Dose: 40 mg Documented by: BRITTANY Vital Signs Vital signs: Vital Signs - 8 hr 03/06/19 13:54 03/06/19 14:30 Pulse Rate 108 H 89 Respiratory Rate 16 Blood Pressure [Left Arm] 103/64 116/67 Pulse Oximetry 98 97 <Braden Borges, DO - Last Filed: 03/07/19 07:59> Orders Ordered: Discontinued Medications Benzocaine (Cepacol Lozenge) 1 each PO PRN PRN PRN Reason: Sore Throat Last Admin: 03/06/19 18:05 Dose: 1 each Documented by: SHERRY Bupivacaine HCl/Epinephrine Bitart (Sensorcaine 0.5% W/ Epi (Pf)) 30 ml INJ NOW ONE Stop: 03/06/19 16:41 Last Admin: 03/06/19 16:40 Dose: 30 ml Documented by: BENJA Fentanyl (Sublimaze) 0 mcg IV Q5M PRN PRN Reason: Pain, Moderate (4-6) Hydromorphone HCl (Dilaudid) 0 mg IV Q5M PRN PRN Reason: Pain, Moderate (4-6) Last Admin: 03/06/19 17:57 Dose: 0.5 mg Documented by: Admin: 03/06/19 17:30 Dose: 0.5 mg Documented by: SHERRY Hydroxyzine HCl (Vistaril) 25 mg IM NOW PRN PRN Reason: Pain, Mild (1-3) Sodium Chloride (Normal Saline 0.9%) 1,000 mls @ 150 mls/hr IV CONT VERONA Last Admin: 03/06/19 13:22 Dose: Not Given Documented by: BRITTANY Sodium Chloride (Normal Saline 0.9%) 1,000 mls @ 1,000 mls/hr IV BOLUS ONE Stop: 03/06/19 13:56 Last Infusion: 03/06/19 14:54 Dose: 0 mls/hr Documented by: Admin: 03/06/19 13:44 Dose: 1,000 mls/hr Documented by: BRITTANY Lactated Ringer's (Lactated Ringers) 1,000 mls @ 42 mls/hr IV NOW ONE Stop: 03/07/19 15:11 Last Infusion: 03/06/19 20:52 Dose: 0 mls/hr Documented by: Admin: 03/06/19 17:32 Dose: 42 mls/hr Documented by: Infusion: 03/06/19 17:00 Dose: 42 mls/hr Documented by: Admin: 03/06/19 15:24 Dose: 42 mls/hr Documented by: SALVADOR Acetaminophen (Ofirmev) 1,000 mg in 100 mls @ 400 mls/hr IV NOW ONE Stop: 03/06/19 16:17 Last Infusion: 03/06/19 16:15 Dose: 0 mls/hr Documented by: Admin: 03/06/19 16:00 Dose: 400 mls/hr Documented by: ZACK Lactated Ringer's (Lactated Ringers) 1,000 mls @ 42 mls/hr IV CONT VERONA Cefotetan Disodium/Dextrose (Cefotan) 2 gm in 50 mls @ 100 mls/hr IV NOW ONE Stop: 03/06/19 16:50 Last Infusion: 03/06/19 16:30 Dose: 0 mls/hr Documented by: Admin: 03/06/19 16:25 Dose: 100 mls/hr Documented by: ZACK Lactated Ringer's (Lactated Ringers) 1,000 mls @ 100 mls/hr IV CONT VERONA Ketorolac Tromethamine (Toradol) 30 mg IV NOW ONE Stop: 03/06/19 12:58 Last Admin: 03/06/19 13:44 Dose: 30 mg Documented by: BRITTANY Lorazepam (Ativan) 0.25 mg IV NOW PRN PRN Reason: Anxiety Last Admin: 03/06/19 17:28 Dose: 0.25 mg Documented by: AKUNZE Meperidine HCl (Demerol) 25 mg IV NOW PRN PRN Reason: Moderate pain or shivering Metoclopramide HCl (Reglan) 10 mg IV NOW PRN PRN Reason: Nausea And Vomiting Ondansetron HCl (Zofran) 4 mg IV NOW ONE Stop: 03/06/19 12:58 Last Admin: 03/06/19 13:44 Dose: 4 mg Documented by: BRITTANY Ondansetron HCl (Zofran) 4 mg IV NOW PRN PRN Reason: Nausea And Vomiting Last Admin: 03/06/19 17:56 Dose: 4 mg Documented by: AKUNZE Oxycodone HCl (Percolone) 5 mg PO NOW PRN PRN Reason: Mild or moderate pain Last Admin: 03/06/19 18:08 Dose: 5 mg Documented by: AKUNZE Pantoprazole Sodium (Protonix) 40 mg IV NOW ONE Stop: 03/06/19 12:58 Last Admin: 03/06/19 13:44 Dose: 40 mg Documented by: BRITTANY Vital Signs Vital signs: Vital Signs - 8 hr 03/06/19 13:54 03/06/19 14:30 Pulse Rate 108 H 89 Respiratory Rate 16 Blood Pressure [Left Arm] 103/64 116/67 Pulse Oximetry 98 97 MDM - Abdominal Pain <Paola Tinoco PA-C - Last Filed: 03/06/19 20:51> Lab Data Result diagrams: 03/06/19 13:45 03/06/19 13:45 Labs: Lab Results 03/06/19 03/06/19 03/06/19 Range/Units 12:44 13:45 13:45 WBC 13.3 H (4.5-11.0) X10^3/uL RBC 4.29 (4.0-5.2) X10^6/uL Hgb 12.9 (12.0-16.0) g/dL Hct 38.2 (36-46) % MCV 89.1 (80-100) fL MCH 30.2 (26-34) PG MCHC 33.9 (30-36) % RDW 13.3 (11.6-14.8) % Plt Count 229 (150-400) X10^3/uL Neut % (Auto) 84.8 H (50-75) % Lymph % (Auto) 7.5 L (25-40) % Antelope % (Auto) 7.6 (3-14) % Eos % (Auto) 0.0 L (2-4) % Baso % (Auto) 0.1 (0-2) % Neut # (Auto) 78497 H (9266-3279) /uL Lymph # (Auto) 1000 L (0938-1683) /uL Antelope # (Auto) 1000 H (0-900) /uL Eos # (Auto) 0 (0-450) /uL Baso # (Auto) 0 (0-100) /uL Sodium 138 (137-145) mmol/L Potassium 3.8 (3.4-5.1) mmol/L Chloride 98 (98-107) mmol/L Carbon Dioxide 26 (22-32) mmol/L BUN 9 (7-17) mg/dL Creatinine 0.70 (0.52-1.04) mg/dL Estimated GFR > 60.0 (>60) mL/min BUN/Creatinine Ratio 12.9 (6-22) Glucose 86 (70-100) mg/dL Lactate (0.7-2.1) mmol/L Calcium 9.5 (8.4-10.2) mg/dL Total Bilirubin 0.8 (0.2-1.3) mg/dL AST 18 (14-36) IU/L ALT 13 (<35) IU/L Alkaline Phosphatase 45 (38-126) U/L Total Protein 7.6 (6.3-8.2) g/dL Albumin 4.8 (3.5-5.0) g/dL Globulin 2.8 (1.7-4.1) g/dL Albumin/Globulin Ratio 1.7 (1.0-2.8) Lipase 21 L (23-300) U/L Urine RBC 0-1/hpf (0-5/HPF) Urine WBC 5-10/hpf H (0-5/HPF) Ur Squamous Epith Cells 1-5 /hpf (0-5/HPF) Amorphous Sediment 1+ Urine Bacteria Few (2-10) H (None) Urine Mucus 2+ H (Negative) Ur Culture Indicated? Specimen cultured 03/06/19 Range/Units 13:45 WBC (4.5-11.0) X10^3/uL RBC (4.0-5.2) X10^6/uL Hgb (12.0-16.0) g/dL Hct (36-46) % MCV (80-100) fL MCH (26-34) PG MCHC (30-36) % RDW (11.6-14.8) % Plt Count (150-400) X10^3/uL Neut % (Auto) (50-75) % Lymph % (Auto) (25-40) % Antelope % (Auto) (3-14) % Eos % (Auto) (2-4) % Baso % (Auto) (0-2) % Neut # (Auto) (3218-4327) /uL Lymph # (Auto) (5057-1075) /uL Antelope # (Auto) (0-900) /uL Eos # (Auto) (0-450) /uL Baso # (Auto) (0-100) /uL Sodium (137-145) mmol/L Potassium (3.4-5.1) mmol/L Chloride (98-107) mmol/L Carbon Dioxide (22-32) mmol/L BUN (7-17) mg/dL Creatinine (0.52-1.04) mg/dL Estimated GFR (>60) mL/min BUN/Creatinine Ratio (6-22) Glucose (70-100) mg/dL Lactate 0.7 (0.7-2.1) mmol/L Calcium (8.4-10.2) mg/dL Total Bilirubin (0.2-1.3) mg/dL AST (14-36) IU/L ALT (<35) IU/L Alkaline Phosphatase (38-126) U/L Total Protein (6.3-8.2) g/dL Albumin (3.5-5.0) g/dL Globulin (1.7-4.1) g/dL Albumin/Globulin Ratio (1.0-2.8) Lipase (23-300) U/L Urine RBC (0-5/HPF) Urine WBC (0-5/HPF) Ur Squamous Epith Cells (0-5/HPF) Amorphous Sediment Urine Bacteria (None) Urine Mucus (Negative) Ur Culture Indicated? Point of care testing: Point of Care Testing Test Results Negative Urine Dip Bedside Urine Glucose Negative Bedside Urine Bilirubin + 1 Bedside Urine Ketone +++ 80 Urine Specific [place] 1.015 Bedside Urine Occult Blood +/- Bedside Urine pH 6.0 Bedside Urine Protein + 30 Bedside Urine Urobilinogen +/- 1mg Bedside Urine Nitrite - Negative Bedside Urine Leukocytes + 70 Esterase <Braden Borges, DO - Last Filed: 03/07/19 07:59> Lab Data Labs: Lab Results 03/06/19 03/06/19 03/06/19 Range/Units 12:44 13:45 13:45 WBC 13.3 H (4.5-11.0) X10^3/uL RBC 4.29 (4.0-5.2) X10^6/uL Hgb 12.9 (12.0-16.0) g/dL Hct 38.2 (36-46) % MCV 89.1 (80-100) fL MCH 30.2 (26-34) PG MCHC 33.9 (30-36) % RDW 13.3 (11.6-14.8) % Plt Count 229 (150-400) X10^3/uL Neut % (Auto) 84.8 H (50-75) % Lymph % (Auto) 7.5 L (25-40) % Antelope % (Auto) 7.6 (3-14) % Eos % (Auto) 0.0 L (2-4) % Baso % (Auto) 0.1 (0-2) % Neut # (Auto) 22478 H (6111-2591) /uL Lymph # (Auto) 1000 L (3313-4836) /uL Antelope # (Auto) 1000 H (0-900) /uL Eos # (Auto) 0 (0-450) /uL Baso # (Auto) 0 (0-100) /uL Sodium 138 (137-145) mmol/L Potassium 3.8 (3.4-5.1) mmol/L Chloride 98 (98-107) mmol/L Carbon Dioxide 26 (22-32) mmol/L BUN 9 (7-17) mg/dL Creatinine 0.70 (0.52-1.04) mg/dL Estimated GFR > 60.0 (>60) mL/min BUN/Creatinine Ratio 12.9 (6-22) Glucose 86 (70-100) mg/dL Lactate (0.7-2.1) mmol/L Calcium 9.5 (8.4-10.2) mg/dL Total Bilirubin 0.8 (0.2-1.3) mg/dL AST 18 (14-36) IU/L ALT 13 (<35) IU/L Alkaline Phosphatase 45 (38-126) U/L Total Protein 7.6 (6.3-8.2) g/dL Albumin 4.8 (3.5-5.0) g/dL Globulin 2.8 (1.7-4.1) g/dL Albumin/Globulin Ratio 1.7 (1.0-2.8) Lipase 21 L (23-300) U/L Urine RBC 0-1/hpf (0-5/HPF) Urine WBC 5-10/hpf H (0-5/HPF) Ur Squamous Epith Cells 1-5 /hpf (0-5/HPF) Amorphous Sediment 1+ Urine Bacteria Few (2-10) H (None) Urine Mucus 2+ H (Negative) Ur Culture Indicated? Specimen cultured 03/06/19 Range/Units 13:45 WBC (4.5-11.0) X10^3/uL RBC (4.0-5.2) X10^6/uL Hgb (12.0-16.0) g/dL Hct (36-46) % MCV (80-100) fL MCH (26-34) PG MCHC (30-36) % RDW (11.6-14.8) % Plt Count (150-400) X10^3/uL Neut % (Auto) (50-75) % Lymph % (Auto) (25-40) % Antelope % (Auto) (3-14) % Eos % (Auto) (2-4) % Baso % (Auto) (0-2) % Neut # (Auto) (9350-9930) /uL Lymph # (Auto) (1967-8390) /uL Antelope # (Auto) (0-900) /uL Eos # (Auto) (0-450) /uL Baso # (Auto) (0-100) /uL Sodium (137-145) mmol/L Potassium (3.4-5.1) mmol/L Chloride (98-107) mmol/L Carbon Dioxide (22-32) mmol/L BUN (7-17) mg/dL Creatinine (0.52-1.04) mg/dL Estimated GFR (>60) mL/min BUN/Creatinine Ratio (6-22) Glucose (70-100) mg/dL Lactate 0.7 (0.7-2.1) mmol/L Calcium (8.4-10.2) mg/dL Total Bilirubin (0.2-1.3) mg/dL AST (14-36) IU/L ALT (<35) IU/L Alkaline Phosphatase (38-126) U/L Total Protein (6.3-8.2) g/dL Albumin (3.5-5.0) g/dL Globulin (1.7-4.1) g/dL Albumin/Globulin Ratio (1.0-2.8) Lipase (23-300) U/L Urine RBC (0-5/HPF) Urine WBC (0-5/HPF) Ur Squamous Epith Cells (0-5/HPF) Amorphous Sediment Urine Bacteria (None) Urine Mucus (Negative) Ur Culture Indicated? Point of care testing: Point of Care Testing Test Results Negative Urine Dip Bedside Urine Glucose Negative Bedside Urine Bilirubin + 1 Bedside Urine Ketone +++ 80 Urine Specific [place] 1.015 Bedside Urine Occult Blood +/- Bedside Urine pH 6.0 Bedside Urine Protein + 30 Bedside Urine Urobilinogen +/- 1mg Bedside Urine Nitrite - Negative Bedside Urine Leukocytes + 70 Esterase Discharge Plan Departure Patient Disposition: Admitted As Inpatient Clinical Impression: Ovarian torsion Discharge Date/Time: 03/06/19 14:57 Admit Date/Time: 03/06/19 14:43 Admit Provider: rGacia Sorenson <Braden Borges, DO - Last Filed: 03/07/19 07:59> Sign Out Provider Sign Out Attestation: Dr Borges Co-Sign Statement: I was available for consultation during this patient's emergency department visit. This chart is signed by myself for administrative purposes only. I did not have direct contact with this patient during this visit. They were seen independently by the APC.
--- NOTE | 2019-03-06 12:42 | DI.US.S_ITS ---
PROCEDURE: US ABDOMEN LIMITED INDICATIONS: RIGHT UPPER QUADRANT PAIN TECHNIQUE: Real-time scanning was performed of the abdominal and retroperitoneal organs, with image documentation. COMPARISON: None. FINDINGS: Liver: Liver is normal in size and homogeneous in echotexture. Gallbladder: There is no gallstone. No gallbladder wall thickening or pericholecystic fluid. No sonographic Thomas's sign. Biliary ducts: Intrahepatic bile ducts are non-dilated. Extrahepatic bile duct caliber measures 4 mm. Normal is 6-7 mm or less in diameter, or 10 mm or less post-cholecystectomy. Pancreas: Pancreas is obscured by overlying bowel gas. Miscellaneous: No free abdominal fluid. IMPRESSION: No finding to explain patient's symptoms. Dictated by: Liu Garber M.D. on 03/06/2019 at 14:00 Approved by: Liu Garber M.D. on 03/06/2019 at 14:01
--- NOTE | 2019-03-06 12:42 | DI.US.S_ITS ---
PROCEDURE: US PELVIC COMPLETE INDICATIONS: RIGHT ADNEXAL PAIN TECHNIQUE: Real-time scanning was performed of the pelvic organs, with image documentation. Additional endovaginal scanning was necessary due to incomplete visualization of the adnexal and endometrial structures by transabdominal scanning. COMPARISON: [facility], US, US ABDOMEN LIMITED, 03/06/2019, 13:12. [facility], US, US PELVIC + TRANSVAG + DOPPLER, 03/02/2019, 21:46. [facility], US, US PELVIC COMPLETE, 02/20/2018, 19:45. FINDINGS: Transabdominal scanning: Limited scanning through the kidneys shows no hydronephrosis. No pathologic free abdominal or pelvic fluid. Endovaginal scanning: Uterus: Uterus is normal in size at 8.1 x 3.1 x 4.8 cm. The endometrium measures 6-7 mm in combined thickness. Ovaries: Marked asymmetric enlargement of the right ovary measuring 7.5 x 4.9 x 5.4 cm. No definite normal wave forms are detectable with Doppler interrogation. This is suspicious for right ovarian torsion, and/or right adnexal mass. Left ovary grossly unremarkable measuring 4.2 x 2.0 x 2.3 cm. Expected arterial waveforms present with Doppler interrogation IMPRESSION: Sonographic findings are most suspicious for right ovarian torsion. Recommend urgent EVENT SALES REPRESENTATIVE consultation. Findings and recommendations were personally telephoned and discussed with Paola STONE in the emergency department at 1354 hours 03/06/19. Dictated by: Jose Pat M.D. on 03/06/2019 at 13:47 Approved by: Jose Pat M.D. on 03/06/2019 at 13:57
[2019-03-06 12:57] LABS: Amorphous Sediment Urine 1+; Bacteria Urine Few (2-10); Culture Indicated Urine Specimen Cultured; Mucus Urine 2+ (Negative); RBC Urine 0-1/HPF (0-5/HPF); Squamous Epithelial Cell Urine 1-5 /HPF (0-5/HPF); WBC Urine 5-10/HPF (0-5/HPF)
[2019-03-06] MEDS: PANTOPRAZOLE 40 MG VIAL IV (13:44)
[2019-03-06] MEDS: SODIUM CHLORIDE 0.9% 1,000 ML 1000 ML IV (13:44)
[2019-03-06] MEDS: ONDANSETRON 4 MG/2 ML INJ IV ×2 (13:44→17:56)
[2019-03-06] MEDS: KETOROLAC 60 MG/2 ML VIAL 30 MG IV (13:44)
[2019-03-06 13:54] LABS: Add Manual Diff / Slide Review NO; Basophils Absolute Auto 0 /uL (0-100); Basophils Percent Auto 0.1 % (0-2); Eosinophils Absolute Auto 0 /uL (0-450); Hematocrit 38.2 % (36-46); Hemoglobin 12.9 g/dL (12.0-16.0); Lymphocytes Absolute Auto 1000 /uL (1100-4500); Lymphocytes Percent Auto 7.5 % (25-40); Mean Corpuscular HGB Conc 33.9 % (30-36); Mean Corpuscular Hemoglobin 30.2 PG (26-34); Mean Corpuscular Volume 89.1 fL (80-100); Monocytes Absolute Auto 1000 /uL (0-900); Monocytes Percent Auto 7.6 % (3-14); Neutrophils Absolute Auto 11200 /uL (1500-7000); Neutrophils Percent Auto 84.8 % (50-75); Platelet Count 229 X10^3/uL (150-400); Red Blood Cell Count 4.29 X10^6/uL (4.0-5.2); Red Cell Distribution Width 13.3 % (11.6-14.8); White Blood Cell Count 13.3 X10^3/uL (4.5-11.0)
[2019-03-06 14:06] LABS: Alanine Aminotransferase 13 IU/L (<35); Albumin 4.8 g/dL (3.5-5.0); Albumin Globulin Ratio 1.7 (1.0-2.8); Alkaline Phosphatase 45 U/L (38-126); Aspartate Aminotransferase 18 IU/L (14-36); BUN Creatinine Ratio 12.9 (6-22); Bilirubin Total 0.8 mg/dL (0.2-1.3); Blood Urea Nitrogen 9 mg/dL (7-17); Calcium 9.5 mg/dL (8.4-10.2); Carbon Dioxide 26 mmol/L (22-32); Chloride 98 mmol/L (98-107); Estimated Glomerular Filt Rate > 60.0 mL/min (>60); Globulin 2.8 g/dL (1.7-4.1); Glucose 86 mg/dL (70-100); HEMOLYSIS < 15 (0-50); Lipase 21 U/L (23-300); Potassium 3.8 mmol/L (3.4-5.1); Sodium 138 mmol/L (137-145); Total Protein 7.6 g/dL (6.3-8.2)
[2019-03-06 14:07] LABS: Lactate (Lactic Acid) 0.7 mmol/L (0.7-2.1)
--- NOTE | 2019-03-06 14:27 | P.HPOB_ITS ---
History of Present Illness History of Present Illness Reason for admission: pelvic pain and other Narrative: Sheila Moulton is a 24 year old G0 presenting with acute right lower quadrant pain. The patient reports that the pain began Tuesday night, when she presented to an outside local hospital, underwent evaluation, and was sent home. The patient reports that she then presented to this emergency room and was evaluated and sent home with plans for outpatient OBGYN follow-up. The pain continued, and so she presented to the [facility] for evaluation this morning, where she was referred back to [facility] Emergency Room. The patient reports that the pain has been constant since Tuesday, but that it comes in waves, sometimes being 2/10 and tolerable, sometimes 10/10 and causing nausea and vomiting. The patient reports that the pain is exacerbated by movement, but that the waves of severe pain are not precipitated by movement or by anything else. The pain began in the right upper quadrant, and now radiates from the right lower quadrant of the left lower quadrant and the right upper quadrant. The patient reports that she recently had her menses, which was normal, but denies any other abnormal vaginal bleeding or discharge. She reports mild fevers and mild dysuria starting yesterday, but reports she has been a bit unable to tolerate food or drink for much of the weekend. She denies chest pain, palpitations, myalgias, headache, visual changes, increased swelling, or any other complaints. The patient has a history of torsion of the right fallopian tube requiring right salpingectomy, which was performed in 02/2018 at [facility]. She denies any other contributory medical or surgical history. Review of outside records from her initial evaluation indicates a CT scan showing a normal appendix and gallbladder. [facility] Surgical History Torsion, fallopian tube (Resolved) Social History household members: other Smoking Status: Former smoker Meds Home Medications and Allergies Home Medications Medication Instructions Recorded Confirmed Type hydromorphone 2 mg PO Q4HR PRN #30 tab 02/21/18 03/09/18 Rx ibuprofen 600 mg PO TID-QID PRN #20 tab 02/21/18 Rx ketorolac 10 mg PO Q6H PRN #14 tab 03/03/19 Rx Allergies Allergy/AdvReac Type Severity Reaction Status Date / Time No Known Drug Allergies Allergy Verified 03/09/18 10:00 Review of Systems Constitutional Constitutional: Reports chills and Reports fever(s) Cardiovascular Cardiovascular: Reports system reviewed; no additional complaints, except as documented Respiratory Respiratory: Reports system reviewed and no additional complaints, except as documented Gastrointestinal Gastrointestinal: Reports as per HPI Genitourinary Genitourinary: Reports system reviewed and no additional complaints, except as documented Musculoskeletal Musculoskeletal: Reports system reviewed; no additional complaints, except as documented Neurologic Neurologic: Reports system reviewed and no additional complaints, except as do cumented Exam Vital Signs (past 8 hours): - 03/06/19 12:14 03/06/19 13:54 Temperature 99.4 F Pulse Rate 100 H 108 H Respiratory Rate 13 16 Blood Pressure 126/83 Blood Pressure [Left Arm] 103/64 Pulse Oximetry 98 98 Oxygen Delivery Method Room Air Const General: cooperative, healthy appearing, well developed and in distress (Patient visibly uncomfortable, reports that her pain is at low ebb) Resp Effort & Inspection: normal respiratory effort Auscultation: clear to auscultation bilaterally Cardio Rate: regular rate Rhythm: regular rhythm GI Palpation: firm, guarding and tender Other: Bimanual exam performed. Mild pain in the left lower quadrant, increasing in severity as exam approached the right lower quadrant. Moderate cervical motion tenderness, but no discharge noted. Tenderness not specifically located uterine fundus. Right lower quadrant skin was at Jo tender, with guarding and rebound. Moderate tenderness in upper quadrants bilaterally. Exam limited by guarding, no adnexal masses appreciated. Patient unable to tolerate speculum exam. Objective Labs Result Diagrams: 03/06/19 13:45 03/06/19 13:45 Labs: Laboratory Results - last 24 hr 03/06/19 03/06/19 03/06/19 12:44 13:45 13:45 WBC 13.3 H RBC 4.29 Hgb 12.9 Hct 38.2 MCV 89.1 MCH 30.2 MCHC 33.9 RDW 13.3 Plt Count 229 Neut % (Auto) 84.8 H Lymph % (Auto) 7.5 L [place] % (Auto) 7.6 Eos % (Auto) 0.0 L Baso % (Auto) 0.1 Neut # (Auto) 07870 H Lymph # (Auto) 1000 L [place] # (Auto) 1000 H Eos # (Auto) 0 Baso # (Auto) 0 Sodium 138 Potassium 3.8 Chloride 98 Carbon Dioxide 26 BUN 9 Creatinine 0.70 Estimated GFR > 60.0 BUN/Creatinine Ratio 12.9 Glucose 86 Lactate Calcium 9.5 Total Bilirubin 0.8 AST 18 ALT 13 Alkaline Phosphatase 45 Total Protein 7.6 Albumin 4.8 Globulin 2.8 Albumin/Globulin Ratio 1.7 Lipase 21 L Urine RBC 0-1/hpf Urine WBC 5-10/hpf H Ur Squamous Epith Cells 1-5 /hpf Amorphous Sediment 1+ Urine Bacteria Few (2-10) H Urine Mucus 2+ H Ur Culture Indicated? Specimen cultured 03/06/19 13:45 WBC RBC Hgb Hct MCV MCH MCHC RDW Plt Count Neut % (Auto) Lymph % (Auto) [place] % (Auto) Eos % (Auto) Baso % (Auto) Neut # (Auto) Lymph # (Auto) [place] # (Auto) Eos # (Auto) Baso # (Auto) Sodium Potassium Chloride Carbon Dioxide BUN Creatinine Estimated GFR BUN/Creatinine Ratio Glucose Lactate 0.7 Calcium Total Bilirubin AST ALT Alkaline Phosphatase Total Protein Albumin Globulin Albumin/Globulin Ratio Lipase Urine RBC Urine WBC Ur Squamous Epith Cells Amorphous Sediment Urine Bacteria Urine Mucus Ur Culture Indicated? Assessment & Plan Assessment & Plan narrative: This patient presents for evaluation for ongoing right lower quadrant pain, clinically consistent with right ovarian torsion. Right ovarian torsion confirmed on ultrasound, which showed an enlarged right ovary with minimal blood flow. The patient was counseled about her ultrasound findings, and the plan is for laparoscopy with either right ovarian cystectomy and detorsion, or right oophorectomy. Discussed that the right ovary will be removed if it is thought that it is no longer viable on inspection intraoperatively. We discussed risks and benefits of surgery, and the patient vocalized understanding. We discussed the effect of loss of the right ovary on future fertility, and the patient vocalized understanding. Time Spent With Patient Time with patient: 15-24 minutes
[2019-03-06] MEDS: LACTATED RINGERS 1,000 ML 42 ML IV ×2 (15:24→17:32)
--- NOTE | 2019-03-06 15:25 | PM.PREOP ---
Pre-operative Note Interval Note History & Physical reviewed/Exam performed by Physician: Yes Changes to H&P: No
[2019-03-06] MEDS: ACETAMINOPHEN IV 1,000 MG/100 ML VIAL 400 MG IV (16:00)
--- NOTE | 2019-03-06 16:06 | SUR.OPER ---
Lithotomy on padded OR bed, head on pillow, arms secured on padded arm boards at <90 degrees abduction. Legs secured in padded yellow fins stirrups.
[2019-03-06] MEDS: CEFOTETAN 2 GM/50 ML PIGGYBACK IV (16:25)
[2019-03-06] MEDS: BUPIVACAINE 0.5% W/ EPI (PF) VIAL 30 ML INJ (16:40)
--- NOTE | 2019-03-06 16:57 | P.OP_ITS ---
Operative Date/Time/Diagnoses Date of procedure: 03/06/19 Time of procedure: 16:57 Pre-op diagnosis: Abnormal appendix Post-op diagnosis: same Procedure & Clinicians Procedure: Laparoscopic appendectomy Same procedure as scheduled: No Indications: Torsed ovary was removed and the appendix adjacent to it was quite abnormal. I was asked to evaluate it. Because the distal 4th of it was quite inflamed as well as the adjacent mesenteric fat and there may have been abnormal serosa I felt it best to remove the appendix. The patient was given 2 g of cefotetan once we realized the appendix needed to be removed.(antibiotics are not apparently indicated for removal of an ovary, thus none had been given to this point.) Air Conditioning Mechanic Industrial: Gracia Sorenson Anesthesia Type: General Operative Notes Findings: See indications above Closure Type: primary Specimen(s): other (Appendix) Prosthetic devices, grafts, tissues, transplants, or devices: None Estimated Blood Loss (mL): 0 Blood products transfused: none Procedure in detail: The patient had already had 3 ports placed by the burrer marker axle to removed her ovary. Using those 3 ports 1 in the suprapubic area when near the umbilicus and 1 in the right lower quadrant I divided the mesent megha of the appendix using the ?plasma kinetic device. The base of the appendix was cleared. A loop of 0 PDS was placed at the base and cinched down. A clamp was placed across the appendix distal to this and using a plasma kinetic I divided between the clamp and the tie. The appendix was placed in a bag and removed without spillage. There was no spillage of material and no bleeding. The pelvis was irrigated and suctioned free of fluid by Dr. Sorenson. The closure was performed by Dr. chelsie samaniego as. Please see her note. Complications: none Post-operative Condition: stable Plan for aftercare: Follow-up with Dr. sorenson and with me as needed.
[2019-03-06] MEDS: LORazepam 2 MG/ML INJ 0.25 MG IV (17:28)
[2019-03-06] MEDS: HYDROMORPHONE 2 MG INJ IV ×2 (17:30→17:57)
--- NOTE | 2019-03-06 17:38 | PM.OP.1 ---
Operative Date/Time/Diagnoses Date of procedure: 03/06/19 Time of procedure: 15:55 Pre-op diagnosis: Right ovarian torsion Post-op diagnosis: same Procedure & Clinicians Procedure: Right oophorectomy, appendectomy Same procedure as scheduled: Yes Indications: Right ovarian torsion, inflamed appendix concerning for appendicitis. Surgeon: Gracia Sorenson Business Initiatives Manager: Gill Mulligan Anesthesia Type: General Operative Notes Findings: Torsed, enlarged, necrotic right ovary. Inflamed appendix. Normal left ovary, tube, uterus, cervix, vulva, and vagina. Closure Type: primary Specimen(s): other (Right ovary and tube; appendix) Applied: catheter Estimated Blood Loss (mL): 25 Blood products transfused: none Procedure in detail: After the diagnosis of right ovarian torsion was made and confirmed on ultrasound, proper consents were obtained and the patient was expeditiously transferred to the operating room. General anesthesia was obtained without incident, and the patient was placed in the dorsal lithotomy position. She was prepped and draped in the normal sterile fashion. A cuevas catheter was placed in the bladder. A speculum was placed in the vagina, a tenaculum placed on the anterior lip of the vagina, serial dilation with heaton dilaters was used to dilate the cervix to 8mm, and a Micaela manipulator was placed in the uterus without incident. Attention was then turned to the abdomen, where the patient's infraumbilical laparoscopy scar was infiltrated with 1% lidocaine, incised with a scalpel, and a Veress needle placed inthe abdomen. Intraperitoneal placement was verified with normal saline, and the abdomen was insufflated to 15mmHg. A 5 mm laparoscopy port was placed through the incision without incident. The right lateral laparoscopy scar was infiltrated with lidocaine, incised, and a 5mm port placed under direct visualization without incident. A 12mm suprapubic port was placed without incident. An atraumatic grasper was used to remove the ovary from the posterior cul-de-sac non torsed at, but it was readily apparent that the ovarian tissue was beginning to be necrotic. A PK device was used to cauterize and ligate the IP ligament, and same procedure was used to remove the ovary and portions of the fallopian tube from the broad ligament. The portion of fallopian tube near the uterus was cauterized and ligated with the PK. Good hemostasis was noted at the site. The suprapubic port site was enlarged to allow insertion of a 15 mm Endo-Catch bag, and small Lion retractor was inserted into the bag, and the ovarian tissue was removed piecemeal. The bag was removed, and the port reinserted into the port site. At this point, a survey of the abdomen was performed, and it was noted that the appendix was inflamed appearing, firm, and enlarged. Intraoperative consult was obtained with Dr. Pantoja, who agreed that the appendix should be removed. This was performed without incident as in his operative report. Once the appendectomy was completed, good hemostasis was noted at both operative sites. Both operative sites were irrigated and excess fluid removed with suction. All ports were removed from the abdomen, and 0 Vicryl on a needle was used to close the fascia at the 12 mm port site. The skin at the 12 mm port site was closed in a running fashion with 4 0 Biosyn, the other 2 port sites were closed with an interrupted suture of 4 0 Biosyn. The uterine manipulator was removed from the uterus, and the Cuevas catheter was removed from this bladder. The patient tolerated the procedure well, was transferred to the PACU in stable condition. Complications: none Post-operative Condition: stable Disposition: PACU
--- NOTE | 2019-03-06 17:42 | SUR.PHASEI ---
Pt became teary and anxious after arrival. Medicated with Lorazepam. Patient lying calmly in bed.
--- NOTE | 2019-03-06 17:59 | SUR.PHASEI ---
Pt given applesauce, c/o mild nausea, medicated with zofran. Nausea resolved quickly.
[2019-03-06] MEDS: BENZOCAINE/MENTHOL 1 LOZ PKT 1 EACH PO (18:05)
[2019-03-06] MEDS: OXYCODONE IR 5 MG TABLET PO (18:08)
--- NOTE | 2019-03-06 18:25 | SUR.PHASEI ---
Dr. Sorenson evaluated patient. VVO for Incentive spirometer. Verbal demonstration given. Patient able to get valve above 2500ml
--- NOTE | 2019-03-06 18:56 | SUR.PHASEI ---
Pt maintaining o2 sats in the 90s.
== END 2019-03-06 19:37 | disposition home or self-care (01) ==
LOC: ED 14:41 → AC 14:44
PROVIDERS: Specialist; Admitting Provider Obstetrics & Gynecology; Emergency Provider Internal Medicine; PCP General Practice; Visit Provider Obstetrics & Gynecology
PROC: (CPT 58661; principal; 2019-03-06 15:30)
PROC: 0DTJ4ZZ Resection of Appendix, Percutaneous Endoscopic Approach (ICD-10-PCS; CPT 44970; 2019-03-06 15:30)
DX: N83.511 Torsion of right ovary and ovarian pedicle (principal); R10.9 Unspecified abdominal pain; K35.80 Unspecified acute appendicitis
CPT/HCPCS: 44970; 58661; 36415; 76705; 76856; 80053; 81003; 81015; 81025; 83605; 83690; 85025; 87077; 87086; 96361; 96374; 96375; 96376; 99283; 99284; G0378; C9113; J0131; J0330; J1100; J1170; J1885; J2060; J2250; J2405; J2704; J3010

== ENCOUNTER 2019-06-11 09:00 | Outpatient (RCR) | payer OTHER, SELFPAY ==
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
--- NOTE | 2019-08-22 16:06 | PT-OP ANOTE ---
Per telephone conversation, pt was notified of reopening the clinic soon while following CDC guidelines. Discussed rules for social distancing, wearing of mask and hand washing, & limiting number of patients and PT?s in open areas. Pt states she is in [place] and may return mid August. She will try to call and reschedule when she returns.
--- NOTE | 2019-10-30 08:32 | PT-OP ANOTE ---
Pt DNS for appt. Unable to reach pt by phone or able to leave message regarding missed appt. Pt has one more appt scheduled.
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
== END 2019-11-06 07:29 ==
LOC: PHYS 09:00
PROVIDERS: PCP General Practice; Referring Provider Obstetrics & Gynecology; Visit Provider Obstetrics & Gynecology
DX: N83.8 Other noninflammatory disorders of ovary, fallopian tube and broad ligament (principal); M79.18 Myalgia, other site; R29.898 Other symptoms and signs involving the musculoskeletal system; R10.30 Lower abdominal pain, unspecified; N94.2 Vaginismus; N94.10 Unspecified dyspareunia
CPT/HCPCS: 97110; 97140; 97162